=== PATIENT | female | born 1995 | race Caucasian/White ===

== ENCOUNTER 2019-12-15 10:23 | Emergency (ER) | payer OTHER ==
[~2019-12-15] VITALS: Ht 157.5 cm; Wt 93.4 kg
[2019-12-15] MEDS ORDERED: PRENATABS FA T1 EACH (10:33)
== END 2019-12-15 16:41 | disposition home or self-care (01) ==
LOC: ER 10:23
DX: O20.8 Other hemorrhage in early pregnancy (principal); Z03.818 Encounter for observation for suspected exposure to other biological agents ruled out; Z3A.08 8 weeks gestation of pregnancy

== ENCOUNTER → 2020-02-13 | Emergency (ER) | payer OTHER ==
[~2020-02-13] VITALS: Ht 157.5 cm; Wt 94.3 kg
[~2020-02-13] MED LIST: PRENATABS FA T1 EACH
== END ==
LOC: ER 03:46
DX: O26.892 Other specified pregnancy related conditions, second trimester (principal); R10.2 Pelvic and perineal pain; Z3A.17 17 weeks gestation of pregnancy

== ENCOUNTER 2020-03-14 03:32 | Outpatient (CLI) | payer OTHER | END 2020-03-14 18:27 | disposition home or self-care (01) | LOC: OBS/DEL 03:32 | PROVIDERS: ATTEND Obstetrics & Gynecology | DX: O26.893 Other specified pregnancy related conditions, third trimester (principal); R10.2 Pelvic and perineal pain ==

== ENCOUNTER 2020-04-20 13:36 | Inpatient (IN) | payer OTHER ==
[~2020-04-20] VITALS: Ht 157.5 cm; Wt 97.5 kg
[2020-04-20] MEDS ORDERED: ENDOMETRIN100 MG VG (14:53)
== END 2020-04-27 14:24 | disposition home or self-care (01) | DRG 832 ==
LOC: LDR 13:36 → SURG-SUITE 04-21 10:40
PROVIDERS: ADMIT Obstetrics & Gynecology; ATTEND Obstetrics & Gynecology
PROC: 4A1HXFZ Monitoring of Products of Conception, Cardiac Rhythm, External Approach (ICD-10-PCS; principal; 2020-04-20)
DX: O60.02 Preterm labor without delivery, second trimester (principal); O26.872 Cervical shortening, second trimester; Z3A.26 26 weeks gestation of pregnancy

== ENCOUNTER 2020-06-16 20:33 | Outpatient (CLI) | payer OTHER ==
[~2020-06-16 20:33] MED LIST changes: +ENDOMETRIN100 MG VG
== END 2020-06-17 11:44 | disposition home or self-care (01) ==
LOC: OBS/DEL 20:33
PROVIDERS: ATTEND Obstetrics & Gynecology
DX: O26.893 Other specified pregnancy related conditions, third trimester (principal); K52.89 Other specified noninfective gastroenteritis and colitis; Z3A.35 35 weeks gestation of pregnancy

== ENCOUNTER 2020-06-25 08:50 | Inpatient (IN) | payer OTHER ==
[~2020-06-25] VITALS: Ht 157.5 cm; Wt 103.4 kg
== END 2020-06-27 14:44 | disposition home or self-care (01) | DRG 788 ==
LOC: LDR 08:50 → OB/GYN 17:09 → SURG-SUITE 17:53
PROVIDERS: ADMIT Obstetrics & Gynecology; ATTEND Obstetrics & Gynecology
PROC: 4A1HXFZ Monitoring of Products of Conception, Cardiac Rhythm, External Approach (ICD-10-PCS; 2020-06-25)
PROC: 10D00Z1 Extraction of Products of Conception, Low, Open Approach (ICD-10-PCS; principal; 2020-06-25 16:00)
DX: O64.1XX0 Obstructed labor due to breech presentation, not applicable or unspecified (principal); O36.5930 Maternal care for other known or suspected poor fetal growth, third trimester, not applicable or unspecified; Z3A.36 36 weeks gestation of pregnancy; Z37.0 Single live birth; Z20.822 Contact with and (suspected) exposure to COVID-19

== ENCOUNTER 2023-05-13 11:36 | Emergency (ER) | payer OTHER ==
[~2023-05-13] VITALS: Ht 157.5 cm; Wt 83.9 kg
[2023-05-13] MEDS ORDERED: FAMOTIDINE/PF 20 MG in 0.9 % SODIUM CHLORIDE 8 ML IV PUSH STA (13:20)
[2023-05-13] MEDS ORDERED: HYOSCYAMINE SULFATE 0.125 MG TAB.SUBL SL ONE (13:30)
[2023-05-13] MEDS ORDERED: ONDANSETRON HCL 2 MG/ML VIAL IV ONE (13:30)
[2023-05-13] MEDS ORDERED: 0.9 % SODIUM CHLORIDE 1,000 ML IV SCH (13:30)
[2023-05-13 15:32] LABS: HEMATOCRIT 40.4 % (36.0-45.00); MEAN CELL VOLUME 88.7 fL (80.00-100.00); MEAN CORPUSCULAR HEMOGLOBIN 30.8 pg (27.00-32.0); MEAN CORPUSCULAR HGB CONC 34.7 g/dl (32.0-36.0); PLATELET COUNT 360 K/uL (150-450); RED BLOOD COUNT 4.55 M/uL (4.00-6.00); RED CELL DISTRIBUTION WIDTH 13.5 % (11.5-14.5)
[2023-05-13 16:01] LABS: ALBUMIN 3.9 gm/dL (3.4-5.0); BILIRUBIN TOTAL 0.66 mg/dL (0.3-1.2); CALCIUM 9.7 mg/dL (8.5-10.1); CREATININE SERUM 0.76 mg/dL (0.55-1.02); GFR 91.99; GLOBULINA 4.2 G/DL (2.4-3.5); POTASSIUM 3.6 mEq/L (3.5-5.1); TOTAL PROTEIN 8.1 gm/dL (6.4-8.2)
[2023-05-13] MEDS ORDERED: PEPCID AC20 MG PO (16:12)
[2023-05-13] MEDS ORDERED: ZOFRAN8 MG PO (16:12)
== END 2023-05-13 16:28 | disposition home or self-care (01) ==
LOC: ER 11:36
PROVIDERS: General Practice
DX: K29.60 Other gastritis without bleeding (principal)

== ENCOUNTER 2024-01-20 15:49 | Emergency (ER) | payer OTHER ==
[~2024-01-20] VITALS: Ht 160 cm; Wt 81.6 kg
[~2024-01-20 15:49] MED LIST changes: +PEPCID AC20 MG PO; +ZOFRAN8 MG PO
[2024-01-20 19:28] LABS: PH,URINE 5.5 (5.0-8.0); URINE APPEARANCE Clear; URINE BILIRRUBIN Negative (NEGATIVE); URINE BLOOD Negative; URINE COLOR Yellow; URINE GLUCOSE Negative (NEGATIVE); URINE KETONE 15 (NEGATIVE); URINE LEUKOCYTE Negative; URINE NITRATE Negative; URINE PROTEIN Negative (NEGATIVE); URINE UROBILINOGEN 0.2 E.U./dl
[2024-01-20 19:28] LABS: HEMATOCRIT 39.1 % (36.0-45.00); HEMOGLOBIN 13.8 g/dL (12.0-15.00); MEAN CELL VOLUME 86.9 fL (80.00-100.00); MEAN CORPUSCULAR HEMOGLOBIN 30.5 pg (27.00-32.0); MEAN CORPUSCULAR HGB CONC 35.2 g/dl (32.0-36.0); PLATELET COUNT 332 K/uL (150-450); RED BLOOD COUNT 4.51 M/uL (4.00-6.00); RED CELL DISTRIBUTION WIDTH 13.2 % (11.5-14.5)
[2024-01-20 19:30] LABS: URINE BACTERIA 725.7 uL (0.0-1933); URINE EPITHELIAL CELLS 22.5 uL (0.0-38.8); URINE RBC 5.9 uL (0.0-20.8); URINE WBC 25.6 uL (0.0-23.2)
[2024-01-20] MEDS ORDERED: CIPRO500 MG PO (21:31)
== END 2024-01-20 21:40 | disposition home or self-care (01) ==
LOC: ER 15:51
DX: R19.7 Diarrhea, unspecified (principal); R53.81 Other malaise; Z88.6 Allergy status to analgesic agent